=== PATIENT | male | born 1970 ===

== ENCOUNTER 2017-05-26 18:00 | Inpatient (IN) | payer MEDICAID, OTHER ==
[2017-05-26 18:00] VITALS: BMI 24.0
[2017-05-26 20:46] LABS: BASO # 0.1 K/uL (0.0-0.2); BASO % 0.7 % (0.0-2.0); EOS # 0.1 K/uL (0.0-0.7); EOS % 1.4 % (0.0-4.0); HEMATOCRIT 45.2 % (35.0-51.0); LYMPH # 1.5 K/uL (1.0-4.3); LYMPH % 20.7 % (20.0-40.0); MEAN CELL VOLUME 91.5 fl (80.0-94.0); MEAN CORPUSCULAR HGB CONC 32.7 g/dL (33.0-37.0); MEAN PLATELET VOLUME 9.4 fl (7.2-11.7); MONO # 1.2 K/uL (0.0-0.8); MONO % 16.9 % (0.0-10.0); NEUT # 4.3 K/uL (1.8-7.0); NEUT % 60.3 % (50.0-75.0); RED CELL DISTRIBUTION WIDTH 15.1 % (11.5-14.5); WHITE BLOOD COUNT 7.2 K/uL (4.8-10.8)
[2017-05-26 20:59] LABS: RBC URINE 273 /hpf (0-3); URINE BILIRUBIN NEGATIVE (NEGATIVE); URINE BLOOD LARGE (NEGATIVE); URINE COLOR YELLOW (YELLOW); URINE GLUCOSE (UA) NEG (Normal); URINE KETONE TRACE mg/dL (NEGATIVE); URINE LEUKOCYTE ESTERASE LARGE Leu/uL (Negative); URINE PROTEIN 30 mg/dL (NEGATIVE); URINE UROBILINOGEN 0.2-1.0 mg/dL (0.2-1.0); WBC URINE 130 /hpf (0-5)
[2017-05-26 21:00] LABS: ALCOHOL SERUM < 10 mg/dl (0-10); BLOOD UREA NITROGEN 15 mg/dl (9-20); CALCIUM 9.6 mg/dL (8.4-10.2); CARBON DIOXIDE 26 mmol/L (22-30); CHLORIDE 103 mmol/L (98-107); GFR AFRICAN-AMERICAN > 60; GLUCOSE,RANDOM 101 mg/dL (75-110); POTASSIUM 4.4 MMOL/L (3.6-5.0); URINE BACTERIA FEW (<OCC)
[2017-05-26 21:02] LABS: SODIUM 141 mmol/l (132-148)
--- NOTE | 2017-05-26 21:15 | ED PDOC ---
HPI: Psych/Substance Abuse Time Seen by Provider: 05/26/17 18:25 Chief Complaint (Nursing): Psychiatric Evaluation Chief Complaint (Provider): Psychiatric evaluation History Per: Patient, Family (mom) Onset/Duration Of Symptoms: Days (x1) Suicide/Self Injury Attempted (Context): Cut Wrists (small superficial abrasion in the right arm & little abrasion to left hand) Associated Symptoms: Depression, Suicidal Thoughts, Suicidal Plan Additional History Per: EMS Additional Complaint(s): Mohinder Comer is a 46 year old male, with a past medical history of bipolar disorder, who was brought to the emergency department by EMS accompanied by his mother for psychiatric evaluation onset prior to arrival. The mother reports that he was complaining of body aches and not feeling well. Also, he told her that he wanted to commit suicide. Patient has a small superficial abrasion on right arm and a little abrasion on the left hand after he was trying to cut himself. He states he is very depressed and wants to kill himself. No further medical complaints. PMD: None provided. Past Medical History Reviewed: Historical Data, Nursing Documentation, Vital Signs Vital Signs: Last Vital Signs Temp 98.1 F 05/26/17 18:10 Pulse 93 H 05/26/17 18:10 Resp 16 05/26/17 18:10 BP 145/99 H 05/26/17 18:10 Pulse Ox 96 05/26/17 18:10 - Medical History PMH: Anxiety, Bipolar Disorder, Depression, Migraine, Schizophrenia, Seizures ( LAST SEIZURE ) Denies: Diabetes, Hepatitis, HIV, HTN, Chronic Kidney Disease, Sexually Transmitted Disease - Surgical History Surgical History: No Surg Hx - Family History Family History: States: Unknown Family Hx - Immunization History Hx Tetanus Toxoid Vaccination: No Hx Influenza Vaccination: Yes Hx Pneumococcal Vaccination: No - Home Medications Home Medications: Ambulatory Orders Medication Instructions Recorded Atorvastatin [Lipitor] 20 mg PO DAILY 05/26/17 Divalproex Sodium [Divalproex 500 mg PO BID 05/26/17 Sodium] Mirtazapine [Mirtazapine] 15 mg PO HS 05/26/17 Multivitamin,Therapeutic [Therems] 1 tab PO DAILY 05/26/17 Olanzapine [Olanzapine Odt] 10 mg PO HS 05/26/17 Sertraline [Zoloft] 50 mg PO HS 05/26/17 clonazePAM [Klonopin] 1 mg PO HS 05/26/17 - Allergies Allergies/Adverse Reactions: Allergies Allergy/AdvReac Type Severity Reaction Status Date / Time soy Allergy Mild RASH Verified 11/10/16 09:42 hernesto Allergy RASH Uncoded 11/10/16 09:42 Review of Systems ROS Statement: Except As Marked, All Systems Reviewed And Found Negative Musculoskeletal: Positive for: Other (small superficial abrasion on right hand and little abrasion to the left arm) Psych: Positive for: Depression, Suicidal ideation Physical Exam - Reviewed Nursing Documentation Reviewed: Yes Vital Signs Reviewed: Yes - Physical Exam Appears: Positive for: Non-toxic Head Exam: Positive for: ATRAUMATIC, NORMAL INSPECTION, NORMOCEPHALIC Skin: Positive for: Normal Color, Warm, Dry ENT: Positive for: Other (pt has two superficial abrasions one on R arm and one on l hand) Neck: Positive for: Normal, Painless ROM, Supple Cardiovascular/Chest: Positive for: Regular Rate, Rhythm. Negative for: Murmur Respiratory: Positive for: Normal Breath Sounds. Negative for: Respiratory Distress Gastrointestinal/Abdominal: Positive for: Normal Exam, Bowel Sounds, Soft. Negative for: Tenderness, Guarding, Rebound Neurologic/Psych: Positive for: Alert, Oriented (x3) - Laboratory Results Result Diagrams: 05/26/17 20:30 05/26/17 20:45 - ECG ECG Rhythm: Positive for: Sinus Rhythm (Normal) Rate: 85 O2 Sat by Pulse Oximetry: 96 (RA) Pulse Ox Interpretation: Normal Medical Decision Making Medical Decision Making: Initial impression: psychiatric evaluation for suicidal ideation Initial Plan: --EKG --Alcohol serum --Basic Metabolic Panel --Drug screen, urine --Crisis evaluation --1:1 observation --reevaluation -patient has UTI, ordered macrobid. Patient medically cleared for psychiatric admission per Crisis. Accepted for bipolar disorder. Scribe Attestation: Documented by Mc Polanco, acting as a scribe for John Gavin MD Provider Scribe Attestation: All medical record entries made by the Scribe were at my direction and personally dictated by me. I have reviewed the chart and agree that the record accurately reflects my personal performance of the history, physical exam, medical decision making, and the department course for this patient. I have also personally directed, reviewed, and agree with the discharge instructions and disposition. Disposition - Clinical Impression Clinical Impression: Suicidal behavior with attempted self-injury - Patient ED Disposition Is Patient to be Admitted: Yes Counseled Patient/Family Regarding: Studies Performed, Diagnosis - Disposition Disposition Time: 20:00 Condition: STABLE
[2017-05-26] MEDS ORDERED: Magnesium Hydroxide Susp 30 ml UD PO PRN (23:33)
[2017-05-26] MEDS ORDERED: DiphenhydrAMINE 50 mg/ml Inj IM PRN (23:33)
[2017-05-26] MEDS ORDERED: Alum-Mag Hydrox-Simethicone Susp (30 mL) PO PRN (23:33)
[2017-05-26] MEDS ORDERED: Bismuth Subsalicylate 262 mg/15 ml Sus (240 ml) PO PRN (23:34)
--- NOTE | 2017-05-27 00:25 | PCM.BM ---
<Kristofer Rodriguez P - Last Filed: 05/27/17 00:23> Treatment Plan Problems - Problems identified on initial assessmt Hopelessness/helplessness Date Initiated: 05/27/17 Time Initiated: 00:23 Assessment reference: NA Status: Active Treatment assets and liabiliti Patient Assests: cooperative, ADL independent, physically healthy, negotiates basic needs, cognitively intact Patient Liabilities: financial problems, medical problems - Milieu Protocol Maintain good personal hygiene: daily Encourage regular showers, daily Remind patient to perform daily oral care Maintain personal safety: every shift Educate patient to report safety concerns to staff, every shift Monitor environment for contraband/sharps Medication safety: Monitor for expected outcome, potential side effects: every shift, Assess barriers to learning: every shift, Assess readiness for medication education: every shift <Bela Devries - Last Filed: 05/29/17 12:30> Treatment assets and liabiliti Patient Assests: adapts well, cooperative, ADL independent, physically healthy, negotiates basic needs, cognitively intact Patient Liabilities: financial problems, poor support system, medical problems Family Contact - Outside Agency Agency 1 Care involvment: Following patient during stay, Other Agency contact name: [facility] Agency contact number: [phone]
[2017-05-27 07:48] LABS: T4 5.55 ug/dl (5.5-11.0)
[2017-05-27 08:00] LABS: THYROID STIMULATING HORMONE 2.67 mIU/ML (0.46-4.68)
--- NOTE | 2017-05-27 08:07 | CARD ---
APPROVED REPORT EKG Measurement Heart [id number] <Conclusion> Normal sinus rhythm Normal ECG
[2017-05-27] MEDS ORDERED: MULTIVITAMIN THERAPEUTIC PO SCH (09:00)
[2017-05-27] MEDS: Multivitamin With Minerals Tab PO SCH (09:26)
[2017-05-27] MEDS ORDERED: Divalproex 500 mg ER (ONCE DAILY formulation) PO SCH (11:30)
--- NOTE | 2017-05-27 11:59 | CP.PCM.CON ---
<Opal Roman - Last Filed: 05/27/17 14:14> History of Present Illness - History of Present Illness History of Present Illness: 46 y/o male seen at bedside in psych unit after consultation for medical evaluation. Pt states he was admitted into the hospital by his mother in law due to suicidal thoughts and actions. Pt admits to trying to cut, punch and stab himself periodically in an effort to kill himself over the past 10-15 years. Pt admits to experiencing darkened urine last week that turned to bloody urine approx 3 days ago. Pt states when he came into the hospital yesterday it was yellow again but he was experiencing a burning sensation and increased frequency of urination. Pt admits he had fever and chills yesterday as well. Pt denies N/V/CP/SOB. Pt denies any lower abdominal pain. Pt denies diarrhea or constipation. Pt has no other complaints at this time. PMH: seizure disorder, depression, HLD PSH: L foot surgery, inguinal hernia repair x2 All: soy Social: admits to 3 cigs/day. Admits to cocaine abuse over 20 years ago. Denies EtOH use Family: lives with mother in law (his caregiver) Review of Systems - Review of Systems All systems: reviewed and no additional remarkable complaints except (per HPI) Past Patient History - Infectious Disease Hx of Infectious Diseases: None - Tetanus Immunizations Tetanus Immunization: Unknown - Past Medical History & Family History Past Medical History?: Yes - Past Social History Smoking Status: Light Smoker < 10 Cigarettes Daily - CARDIAC Hx Hypertension: No - PULMONARY Hx Respiratory Disorders: No Hx Tuberculosis: No - NEUROLOGICAL Hx Migraine: Yes Hx Seizures: Yes (LAST SEIZURE ) - HEENT Hx HEENT Problems: Yes ("Hard of Hearing, left ear") Other/Comment: wears bilateral bifocals - RENAL Hx Chronic Kidney Disease: No - ENDOCRINE/METABOLIC Hx Endocrine Disorders: No - HEMATOLOGICAL/ONCOLOGICAL Hx Human Immunodeficiency Virus (HIV): No - INTEGUMENTARY Hx Dermatological Problems: No - MUSCULOSKELETAL/RHEUMATOLOGICAL Hx Musculoskeletal Disorders: Yes Other/Comment: HX: BUNIONS - GASTROINTESTINAL Hx Gastrointestinal Disorders: Yes Other/Comment: Hx. Umbilical Hernia - GENITOURINARY/GYNECOLOGICAL Hx Sexually Transmitted Disorders: No - PSYCHIATRIC Hx Anxiety: Yes Hx Bipolar Disorder: Yes Hx Depression: Yes Hx Schizophrenia: Yes - SURGICAL HISTORY Hx Surgeries: Yes Hx Herniorrhaphy: Yes (REPAIR OF-HX: RIGHT INGUINAL; HX: UMBILICAL HERNIA) Other/Comment: left foot surgery - ANESTHESIA Hx Anesthesia: Yes Hx Anesthesia Reactions: No Hx Malignant Hyperthermia: No Meds Allergies/Adverse Reactions: Allergies Allergy/AdvReac Type Severity Reaction Status Date / Time soy Allergy Mild RASH Verified 11/10/16 09:42 hernesto Allergy RASH Uncoded 11/10/16 09:42 - Medications Medications: Current Medications Acetaminophen (Tylenol 325mg Tab) 650 mg PO Q4 PRN PRN Reason: pain level 4-7 Al Hydrox/Mg Hydrox/Simethicone (Maalox Plus 30 Ml) 30 ml PO Q4 PRN PRN Reason: Dyspepsia Atorvastatin Calcium (Lipitor) 20 mg PO DAILY [facility] Last Admin: 05/27/17 09:26 Dose: 20 mg Bismuth Subsalicylate (Pepto-Bismol) 524 mg PO Q4 PRN PRN Reason: Diarrhea Clonazepam (Klonopin) 0.5 mg PO BID [facility] Diphenhydramine HCl (Benadryl) 50 mg IM Q6 PRN PRN Reason: Extrapyramidal S/S Unable PO Diphenhydramine HCl (Benadryl) 50 mg PO Q6 PRN PRN Reason: Extrapyramidal Symptoms Diphenhydramine HCl (Benadryl) 50 mg PO HS PRN PRN Reason: Sleep Last Admin: 05/27/17 00:14 Dose: 50 mg Divalproex Sodium (Depakote Dr(*Bid*)) 500 mg PO BID [facility] Haloperidol (Haldol) 5 mg PO Q4 PRN PRN Reason: Agitation Haloperidol Lactate (Haldol) 5 mg IM Q4 PRN PRN Reason: Agitation, Unable to Take PO Lorazepam (Ativan) 2 mg IM Q4 PRN PRN Reason: Anxiety/Agitation,Unable PO Lorazepam (Ativan) 2 mg PO Q4 PRN PRN Reason: Anxiety/Agitation Magnesium Hydroxide (Milk Of Magnesia) 30 ml PO HS PRN PRN Reason: Constipation Mirtazapine (Remeron) 15 mg PO HS [facility] Multivitamins/Minerals (Therapeutic-M Tab) 1 tab PO DAILY [facility] Last Admin: 05/27/17 09:26 Dose: 1 tab Physical Exam - Constitutional Appears: Well, Non-toxic, No Acute Distress - Head Exam Head Exam: ATRAUMATIC, NORMOCEPHALIC - Eye Exam Eye Exam: EOMI, Normal appearance, PERRL Pupil Exam: NORMAL ACCOMODATION, PERRL - ENT Exam ENT Exam: Mucous Membranes Moist, Normal Exam - Neck Exam Neck exam: Positive for: Full Rom, Normal Inspection Additional comments: supple, non-tender, no JVD noted - Respiratory Exam Respiratory Exam: Clear to Auscultation Bilateral, NORMAL BREATHING PATTERN Additional comments: no respiratory distress, no wheezing, no rales - Cardiovascular Exam Cardiovascular Exam: REGULAR RHYTHM, +S1, +S2 Additional comments: no murmur, no gallop - GI/Abdominal Exam GI & Abdominal Exam: Normal Bowel Sounds, Soft Additional comments: non-tender - Rectal Exam Rectal Exam: Deferred - Extremities Exam Extremities exam: Positive for: full ROM, normal capillary refill Additional comments: superficial skin abrasions noted to inner aspect of B/L wrists. Old scarring noted to anterior L shoulder and dorsum of R hand at sites of prior suicide attempts - Back Exam Back exam: NORMAL INSPECTION - Neurological Exam Neurological exam: Alert, CN II-XII Intact, Normal Gait, Oriented x3, Reflexes Normal - Psychiatric Exam Psychiatric exam: Suicidal Ideation - Skin Skin Exam: Abrasion Additional comments: Superficial linear transverse abrasions noted to B/L inner wrists. No erythema, no drainage, no malodor, no clinical suspicion of infection. Old scars noted to anterior L shoulder and dorsum of R hand with no breaks in skin or soft tissue noted. No cellulitic changes noted. Results - Vital Signs Recent Vital Signs: Last Vital Signs Temp 97.3 F L 05/27/17 09:00 Pulse 88 05/27/17 09:00 Resp 18 05/27/17 09:00 BP 133/90 05/27/17 09:00 Pulse Ox 96 05/27/17 05:48 - Labs Result Diagrams: 05/26/17 20:30 05/26/17 20:45 Labs: Laboratory Results - last 24 hr 05/26/17 05/26/17 05/26/17 20:30 20:45 20:45 WBC 7.2 RBC 4.93 Hgb 14.8 Hct 45.2 MCV 91.5 MCH 30.0 MCHC 32.7 L RDW 15.1 H Plt Count 217 MPV 9.4 Neut % (Auto) 60.3 Lymph % (Auto) 20.7 Ballard % (Auto) 16.9 H Eos % (Auto) 1.4 Baso % (Auto) 0.7 Neut # 4.3 Lymph # 1.5 Ballard # 1.2 H Eos # 0.1 Baso # 0.1 Sodium 141 Potassium 4.4 Chloride 103 Carbon Dioxide 26 Anion Gap 16 BUN 15 Creatinine 1.1 Est GFR ( Amer) > 60 Est GFR (Non-Af Amer) > 60 Random Glucose 101 Calcium 9.6 Triglycerides Cholesterol LDL Cholesterol Direct HDL Cholesterol Thyroxine (T4) TSH 3rd Generation Urine Color Urine Clarity Urine pH Ur Specific Lilly Urine Protein Urine Glucose (UA) Urine Ketones Urine Blood Urine Nitrate Urine Bilirubin Urine Urobilinogen Ur Leukocyte Esterase Urine RBC (Auto) Urine Microscopic WBC Urine Bacteria Salicylates < 1.0 Urine Opiates Screen Urine Methadone Screen Acetaminophen < 10.0 L Ur Barbiturates Screen Ur Phencyclidine Scrn Ur Amphetamines Screen U Benzodiazepines Scrn U Oth Cocaine Metabols U Cannabinoids Screen Alcohol, Quantitative < 10 05/26/17 05/26/17 05/27/17 20:45 20:45 06:30 WBC RBC Hgb Hct MCV MCH MCHC RDW Plt Count MPV Neut % (Auto) Lymph % (Auto) Ballard % (Auto) Eos % (Auto) Baso % (Auto) Neut # Lymph # Ballard # Eos # Baso # Sodium Potassium Chloride Carbon Dioxide Anion Gap BUN Creatinine Est GFR ( Amer) Est GFR (Non-Af Amer) Random Glucose Calcium Triglycerides 156 H D Cholesterol 215 H LDL Cholesterol Direct 143 H HDL Cholesterol 37 Thyroxine (T4) 5.55 TSH 3rd Generation 2.67 Urine Color Yellow Urine Clarity Cloudy Urine pH 6.0 Ur Specific Lilly 1.019 Urine Protein 30 Urine Glucose (UA) Neg Urine Ketones Trace Urine Blood Large Urine Nitrate Positive H Urine Bilirubin Negative Urine Urobilinogen 0.2-1.0 Ur Leukocyte Esterase Large Urine RBC (Auto) 273 H Urine Microscopic WBC 130 H Urine Bacteria Few H Salicylates Urine Opiates Screen Positive H Urine Methadone Screen Negative Acetaminophen Ur Barbiturates Screen Positive H Ur Phencyclidine Scrn Negative Ur Amphetamines Screen Negative U Benzodiazepines Scrn Negative U Oth Cocaine Metabols Negative U Cannabinoids Screen Negative Alcohol, Quantitative Assessment & Plan (1) Depression Assessment and Plan: Psych to continue with medication management of bipolar disorder and depression with suicidal ideations Status: Acute (2) Urinary tract infection Assessment and Plan: -Macrobid for 2 add'l days for UTI Status: Acute (3) Hyperlipidemia Assessment and Plan: -on Atorvastatin (home med) Status: Chronic (4) Seizure disorder Assessment and Plan: -last seizure >1 mo ago -continue Depakote Status: Chronic (5) Pre-diabetes Assessment and Plan: -HgA1C = 6.2 -Diabetic education and counseling on diet and exercise Status: Acute <Ana Solitario - Last Filed: 05/27/17 19:25> Meds - Medications Medications: Current Medications Acetaminophen (Tylenol 325mg Tab) 650 mg PO Q4 PRN PRN Reason: pain level 4-7 Last Admin: 05/27/17 17:25 Dose: 650 mg Al Hydrox/Mg Hydrox/Simethicone (Maalox Plus 30 Ml) 30 ml PO Q4 PRN PRN Reason: Dyspepsia Atorvastatin Calcium (Lipitor) 20 mg PO DAILY [facility] Last Admin: 05/27/17 09:26 Dose: 20 mg Bismuth Subsalicylate (Pepto-Bismol) 524 mg PO Q4 PRN PRN Reason: Diarrhea Clonazepam (Klonopin) 0.5 mg PO BID [facility] Last Admin: 05/27/17 17:27 Dose: 0.5 mg Diphenhydramine HCl (Benadryl) 50 mg IM Q6 PRN PRN Reason: Extrapyramidal S/S Unable PO Diphenhydramine HCl (Benadryl) 50 mg PO Q6 PRN PRN Reason: Extrapyramidal Symptoms Diphenhydramine HCl (Benadryl) 50 mg PO HS PRN PRN Reason: Sleep Last Admin: 05/27/17 00:14 Dose: 50 mg Divalproex Sodium (Depakote Dr(*Bid*)) 500 mg PO BID [facility] Last Admin: 05/27/17 17:27 Dose: 500 mg Haloperidol (Haldol) 5 mg PO Q4 PRN PRN Reason: Agitation Haloperidol Lactate (Haldol) 5 mg IM Q4 PRN PRN Reason: Agitation, Unable to Take PO Lorazepam (Ativan) 2 mg IM Q4 PRN PRN Reason: Anxiety/Agitation,Unable PO Lorazepam (Ativan) 2 mg PO Q4 PRN PRN Reason: Anxiety/Agitation Magnesium Hydroxide (Milk Of Magnesia) 30 ml PO HS PRN PRN Reason: Constipation Mirtazapine (Remeron) 15 mg PO HS MALIHA Multivitamins/Minerals (Therapeutic-M Tab) 1 tab PO DAILY [facility] Last Admin: 05/27/17 09:26 Dose: 1 tab Nitrofurantoin Macrocrystals (Macrobid) 100 mg PO Q12 [facility] Stop: 05/29/17 09:01 Results - Vital Signs Recent Vital Signs: Last Vital Signs Temp 98.1 F 05/27/17 17:00 Pulse 88 05/27/17 17:00 Resp 18 05/27/17 17:00 BP 141/91 H 05/27/17 17:00 Pulse Ox 96 05/27/17 05:48 - Labs Result Diagrams: 05/26/17 20:30 05/26/17 20:45 Labs: Laboratory Results - last 24 hr 05/26/17 05/26/17 05/26/17 20:30 20:45 20:45 WBC 7.2 RBC 4.93 Hgb 14.8 Hct 45.2 MCV 91.5 MCH 30.0 MCHC 32.7 L RDW 15.1 H Plt Count 217 MPV 9.4 Neut % (Auto) 60.3 Lymph % (Auto) 20.7 Ballard % (Auto) 16.9 H Eos % (Auto) 1.4 Baso % (Auto) 0.7 Neut # 4.3 Lymph # 1.5 Ballard # 1.2 H Eos # 0.1 Baso # 0.1 Sodium 141 Potassium 4.4 Chloride 103 Carbon Dioxide 26 Anion Gap 16 BUN 15 Creatinine 1.1 Est GFR ( Amer) > 60 Est GFR (Non-Af Amer) > 60 Random Glucose 101 Hemoglobin A1c Calcium 9.6 Triglycerides Cholesterol LDL Cholesterol Direct HDL Cholesterol Thyroxine (T4) TSH 3rd Generation Urine Color Urine Clarity Urine pH Ur Specific Lilly Urine Protein Urine Glucose (UA) Urine Ketones Urine Blood Urine Nitrate Urine Bilirubin Urine Urobilinogen Ur Leukocyte Esterase Urine RBC (Auto) Urine Microscopic WBC Urine Bacteria Salicylates < 1.0 Urine Opiates Screen Urine Methadone Screen Acetaminophen < 10.0 L Ur Barbiturates Screen Ur Phencyclidine Scrn Ur Amphetamines Screen U Benzodiazepines Scrn U Oth Cocaine Metabols U Cannabinoids Screen Alcohol, Quantitative < 10 RPR 05/26/17 05/26/17 05/27/17 20:45 20:45 06:30 WBC RBC Hgb Hct MCV MCH MCHC RDW Plt Count MPV Neut % (Auto) Lymph % (Auto) Ballard % (Auto) Eos % (Auto) Baso % (Auto) Neut # Lymph # Ballard # Eos # Baso # Sodium Potassium Chloride Carbon Dioxide Anion Gap BUN Creatinine Est GFR ( Amer) Est GFR (Non-Af Amer) Random Glucose Hemoglobin A1c Calcium Triglycerides 156 H D Cholesterol 215 H LDL Cholesterol Direct 143 H HDL Cholesterol 37 Thyroxine (T4) 5.55 TSH 3rd Generation 2.67 Urine Color Yellow Urine Clarity Cloudy Urine pH 6.0 Ur Specific Lilly 1.019 Urine Protein 30 Urine Glucose (UA) Neg Urine Ketones Trace Urine Blood Large Urine Nitrate Positive H Urine Bilirubin Negative Urine Urobilinogen 0.2-1.0 Ur Leukocyte Esterase Large Urine RBC (Auto) 273 H Urine Microscopic WBC 130 H Urine Bacteria Few H Salicylates Urine Opiates Screen Positive H Urine Methadone Screen Negative Acetaminophen Ur Barbiturates Screen Positive H Ur Phencyclidine Scrn Negative Ur Amphetamines Screen Negative U Benzodiazepines Scrn Negative U Oth Cocaine Metabols Negative U Cannabinoids Screen Negative Alcohol, Quantitative RPR 05/27/17 05/27/17 06:30 06:30 WBC RBC Hgb Hct MCV MCH MCHC RDW Plt Count MPV Neut % (Auto) Lymph % (Auto) Ballard % (Auto) Eos % (Auto) Baso % (Auto) Neut # Lymph # Ballard # Eos # Baso # Sodium Potassium Chloride Carbon Dioxide Anion Gap BUN Creatinine Est GFR ( Amer) Est GFR (Non-Af Amer) Random Glucose Hemoglobin A1c 6.2 Calcium Triglycerides Cholesterol LDL Cholesterol Direct HDL Cholesterol Thyroxine (T4) TSH 3rd Generation Urine Color Urine Clarity Urine pH Ur Specific Lilly Urine Protein Urine Glucose (UA) Urine Ketones Urine Blood Urine Nitrate Urine Bilirubin Urine Urobilinogen Ur Leukocyte Esterase Urine RBC (Auto) Urine Microscopic WBC Urine Bacteria Salicylates Urine Opiates Screen Urine Methadone Screen Acetaminophen Ur Barbiturates Screen Ur Phencyclidine Scrn Ur Amphetamines Screen U Benzodiazepines Scrn U Oth Cocaine Metabols U Cannabinoids Screen Alcohol, Quantitative RPR Nonreactive Attending/Attestation - Attestation I have personally seen and examined this patient.: Yes I have fully participated in the care of the patient.: Yes I have reviewed all pertinent clinical information: Yes Notes (Text): 05/27/17 19:25 SEEN EXAMINED DISCUSSED WITH RESIDENT, AGREE WITH FINDINGS AND PLAN ABOVE.
[2017-05-27] MEDS: Divalproex 500 mg DR(BID formulation) PO SCH ×2 (12:24→17:27)
--- NOTE | 2017-05-27 13:45 | RAD ---
HISTORY: Routine. COMPARISON: No prior. TECHNIQUE: Chest PA and lateral FINDINGS: LUNGS: No active pulmonary disease. PLEURA: No significant pleural effusion identified. No pneumothorax apparent. CARDIOVASCULAR: Normal. OSSEOUS STRUCTURES: No significant abnormalities. VISUALIZED UPPER ABDOMEN: Normal. OTHER FINDINGS: None. IMPRESSION: No active disease.
--- NOTE | 2017-05-27 14:36 | PCM.PSYCH ---
Initial Psychiatric Evaluation - Initial Psychiatric Evaluation Type of Admission: Voluntary Chief Complaint (in patient's own words): I HAD BAD PAIN AND I SAW BLOOD IN MY URINE SO I STARTED THINKING ABOUT HURTING MYSELF Patient's Reaction to Hospitalization: PATIENT REQUESTING HELP History of Present Illness and Precipitating Events: Pt is a 46 y/o male that presented to the ED for suicidal ideations with no plan. Pt reports that he asked his mom to call 911 because he was going to harm himself. Pt reports that his ideations was triggered due to physical pain due to a headche and urinary tract infection. Pt e has a history of self mutilative behavior Pt has history of Bipolar disorder and seizure disorder . Pt reported several inpatient treatment in various hospitals with his last inpatient treatment being in 09/2016 at [facility]. he currently attends his day day program at [facility]. Pt reports his medications as Liptor 20mg, Klonopin 1mg, Depakote 300mg, Zoloft 50mg anf Mirtazpine 15mg. Pt denied any current psychotic symptoms, denied any current substance use Current Medications: Active Medications Generic Name Dose Route Start Last Admin Trade Name Freq PRN Reason Stop Dose Admin Acetaminophen 650 mg 05/26/17 23:33 Tylenol 325mg Tab PO Q4 PRN pain level 4-7 Al Hydrox/Mg Hydrox/Simethicone 30 ml 05/26/17 23:33 Maalox Plus 30 Ml PO Q4 PRN Dyspepsia Atorvastatin Calcium 20 mg 05/27/17 09:00 05/27/17 09:26 Lipitor PO 20 mg DAILY MALIHA Administration Bismuth Subsalicylate 524 mg 05/26/17 23:34 Pepto-Bismol PO Q4 PRN Diarrhea Clonazepam 0.5 mg 05/27/17 12:00 05/27/17 12:24 Klonopin PO 0.5 mg BID MALIHA Administration Diphenhydramine HCl 50 mg 05/26/17 23:33 Benadryl IM Q6 PRN Extrapyramidal S/S Unable PO Diphenhydramine HCl 50 mg 05/26/17 23:33 Benadryl PO Q6 PRN Extrapyramidal Symptoms Diphenhydramine HCl 50 mg 05/27/17 00:10 05/27/17 00:14 Benadryl PO 50 mg HS PRN Administration Sleep Divalproex Sodium 500 mg 05/27/17 12:00 05/27/17 12:24 Ilya Kowalski(*Bid*) PO 500 mg BID MALIHA Administration Haloperidol 5 mg 05/26/17 23:33 Haldol PO Q4 PRN Agitation Haloperidol Lactate 5 mg 05/26/17 23:33 Haldol IM Q4 PRN Agitation, Unable to Take PO Lorazepam 2 mg 05/26/17 23:33 Ativan IM Q4 PRN Anxiety/Agitation,Unable PO Lorazepam 2 mg 05/26/17 23:33 Ativan PO Q4 PRN Anxiety/Agitation Magnesium Hydroxide 30 ml 05/26/17 23:33 Milk Of Magnesia PO HS PRN Constipation Mirtazapine 15 mg 05/27/17 22:00 Remeron PO HS MALIHA Multivitamins/Minerals 1 tab 05/27/17 09:00 05/27/17 09:26 Therapeutic-M Tab PO 1 tab DAILY MALIHA Administration Nitrofurantoin Macrocrystals 100 mg 05/27/17 21:00 Macrobid PO 05/29/17 09:01 Q12 MALIHA Past Psychiatric History - Past Psychiatric History Previous Treatment History: Inpatient Explanation of prior treatment: patient has history of at least two inpatient hospitalizations, diagnosed with bipolar disorder, currently follows up at a day program History of Abuse: patient denied History of ETOH/Drug Use: occasional use of alcohol denied any other substance use Pertinent Medical Hx (Current Medical&Sleep Prob, Allergies): Allergies Allergy/AdvReac Type Severity Reaction Status Date / Time soy Allergy Mild RASH Verified 11/10/16 09:42 hernesto Allergy RASH Uncoded 11/10/16 09:42 Atorvastatin [Lipitor] 20 mg PO DAILY 05/26/17 Divalproex Sodium [Divalproex Sodium] 500 mg PO BID 05/26/17 Mirtazapine [Mirtazapine] 15 mg PO HS 05/26/17 Multivitamin,Therapeutic [Therems] 1 tab PO DAILY 05/26/17 Olanzapine [Olanzapine Odt] 10 mg PO HS 05/26/17 Sertraline [Zoloft] 50 mg PO HS 05/26/17 clonazePAM [Klonopin] 1 mg PO HS 05/26/17 Mental Status Examination - Personal Presentation Personal Presentation: Looks stated age - Motor Activity Motor Activity: Psychomotor Agitation - Reliability in Providing Information Reliability in Providing Information: Fair - Speech Speech: Tangential - Mood Mood: Anxious - Formal Thought Process Formal Thought Process: Circumstantial - Hallucinations/Delusions Additional comments: patient denied any current perceptual disturbances non elicited - Obsessions/Compulsions Obsessions: No Compulsions: No - Cognitive Functions Orientation: Person, Place, Situation Sensorium: Alert Attention/Concentration: Attentive Abstract Thinking: [place] Judgement: Imparied, as evidence by: Poor judgement Memory: Recent intact, as evidence by: Ability to recall events of the day - Risk Risk: Self-mutilation, Diminished functioning - Strength & Assets Inventory Strength & Assets Inventory: Employment history - Limitations Additional comments: financial difficultieds and poor social support DSM 5 DX - DSM 5 DSM 5 Diagnosis: bipolar I disorder MRE DEPRESSED - Recommended/Plan of Treatment Treatment Recommendations and Plan of Treatment: START DEPAKOTE REMERON AND KLONOPIN PATIENT WILL BE MONITORED FOOR PSYCHOPHARMACOLOGICAL EFFECTS AND SIDE EFFECT PROFILE SUPPORTIVE THERAPY PROVIDED Discharge Plan and Discharge Criteria: PATIENT PRESENTING WITH STABLE MOOD
[2017-05-28] MEDS: Divalproex 500 mg DR(BID formulation) PO SCH ×2 (09:19→17:31)
[2017-05-28] MEDS: Multivitamin With Minerals Tab PO SCH (09:20)
--- NOTE | 2017-05-28 10:41 | PCM.PYCHPN ---
Psychiatric Progress Note - Psychiatric Progress Note Patient seen today, length of contact: Patient evaluated, case discussed w/ team , chart reviewed Patient Chief Complaint: "I'm feeling okay" Problems Identified/Issues Discussed: Patient reports that his mood is starting to improve, but he continues to feel depressed and anxious at times. He denies current ideation to harm self or others. He denies psychotic symptoms. He denies adverse effects to medications. Medication Change: No Medical Record Reviewed: Yes Consults ordered or reviewed: Medicine consult- patient on Macrobid for UTI Mental Status Examination - Cognitive Function Orientation: Person, Place, Situation, Time Memory: Intact Attention: WNL Concentration: WNL Association: WNL Fund of Knowledge: [facility] Decription of patient's judgement and insights: Poor I/J re: substance abuse - Mood Mood: Depressed, Anxious - Affect Affect: Constricted - Speech Speech: Appropriate - Formal Thought Process Formal Thought Process: No Impairment Psychotic Thoughts and Behaviors: NO AH/VH/paranoia/delusions - Suicidal Ideation Suicidal Ideation: No - Homicidal Ideation Homicidal Ideation: No Goal/Treatment Plan - Goal/Treatment Plan Need for Continued Stay: Remain at risks for inpatient hospitalization, Severe depression anxiety, Discharge may exacerbated symptoms Progress Toward Problem(s) and Goals/Treatment Plan: Bipolar Disorder; Opioid Use Disorder; Barbituate Use Disorder -Individual and group therapy -Medicine consult appreciated, patient on Macrobid for UTI -Continue Remeron 15 mg PO HS -Continue Depakote 500 mg PO BID -Continue Klonopin 0.5 mg PO BID -Disposition planning Estimated Date of D/C: 05/31/17
--- NOTE | 2017-05-29 08:36 | PCM.PYCHPN ---
Psychiatric Progress Note - Psychiatric Progress Note Patient seen today, length of contact: Patient evaluated, case discussed w/ team , chart reviewed Patient Chief Complaint: "I'm feeling okay" Problems Identified/Issues Discussed: Patient reports that his mood is improving, he feels less anxious and depressed. No acute medical complaints. He denies current ideation to harm self or others. He denies psychotic symptoms. He denies adverse effects to medications. Medication Change: No Medical Record Reviewed: Yes Consults ordered or reviewed: Medicine consult- patient on Macrobid for UTI Mental Status Examination - Cognitive Function Orientation: Person, Place, Situation, Time Memory: Intact Attention: WNL Concentration: WNL Association: WNL Fund of Knowledge: WN Decription of patient's judgement and insights: Poor I/J re: substance abuse - Mood Mood: Depressed - Affect Affect: Constricted - Speech Speech: Appropriate - Formal Thought Process Formal Thought Process: No Impairment Psychotic Thoughts and Behaviors: NO AH/VH/paranoia/delusions - Suicidal Ideation Suicidal Ideation: No - Homicidal Ideation Homicidal Ideation: No Goal/Treatment Plan - Goal/Treatment Plan Need for Continued Stay: Remain at risks for inpatient hospitalization, Severe depression anxiety, Discharge may exacerbated symptoms Progress Toward Problem(s) and Goals/Treatment Plan: Bipolar Disorder; Opioid Use Disorder; Barbituate Use Disorder -Individual and group therapy -Medicine consult appreciated, patient on Macrobid for UTI -Continue Remeron 15 mg PO HS -Continue Depakote 500 mg PO BID, check VPA 05/31/17 -Continue Klonopin 0.5 mg PO BID -Disposition planning Estimated Date of D/C: 05/31/17
[2017-05-29] MEDS: Multivitamin With Minerals Tab PO SCH (09:22)
[2017-05-29] MEDS: Divalproex 500 mg DR(BID formulation) PO SCH ×2 (09:22→17:28)
[2017-05-30] MEDS: Multivitamin With Minerals Tab PO SCH (08:46)
[2017-05-30 09:23] VITALS: PULSE 85; O2SAT 96
[2017-05-30 09:48] VITALS: BP 120/87; RESP 16; TEMP 96.6
[2017-05-30] MEDS: Divalproex 500 mg DR(BID formulation) PO SCH (09:52)
--- NOTE | 2017-05-30 10:57 | PCM.PYCHDC ---
Mental Status Examination - Mental Status Examination Orientation: Person, Place, Situation, Time Memory: Intact Mood: Neutral Affect: Broad Speech: Appropriate Attention: WNL Concentration: WNL Association: WNL Fund of Knowledge: WNL Formal Thought Process: No Impairment Description of patient's judgement and insight: Poor I/J re: substance abuse; Psychoeducation provided Psychotic Thoughts and Behaviors: NO AH/VH/paranoia/delusions Suicidal Ideation: No Current Homicidal Ideation?: No Discharge Summary - Discharge Note Reason for Hospitalization: 46 y/o male admitted for suicidal ideation and depressed mood in the context of opioid and barbituate abuse. +sleep/appetite disturbances. Pt admits to experiencing darkened urine last week that turned to bloody urine approx 3 days ago. Pt states when he came into the hospital yesterday it was yellow again but he was experiencing a burning sensation and increased frequency of urination. Pt admits he had fever and chills yesterday as well. Pt denies N/V/CP/SOB. Pt denies any lower abdominal pain. Pt denies diarrhea or constipation. Pt has no other complaints at this time. PMH: seizure disorder, depression, HLD PSH: L foot surgery, inguinal hernia repair x2 All: soy Social: admits to 3 cigs/day. Admits to cocaine abuse over 20 years ago. Denies EtOH use Family: lives with mother in law (his caregiver) Laboratory Data: Abnormal Lab Results 05/30/17 09:15 Valproic Acid 54.9 Consultations:: List each consultation separately and include: 1. Reason for request. 2. Findings. 3. Follow-up Consultations: Medicine consult- patient treated for UTI Summary of Hospital Course include:: 1. Description of specific treatment plan utilized for patients during their course of treatmen. 2. Summarize the time- course for resolution of acute symptoms and/or regressed behaviors. 3. Describe issues identified and worked on during hospitalization. 4. Describe medication utilized. 5. Describe medical problems identified and treated. 6. Reassessment of suicide risk Summary of Hospital Course: Patient admitted to the psychiatry unit. Individual and group therapy were provided. Patient was stabilized on Depakote 500 mg PO BID (VPA 54.9 on ), Remeron 15 mg PO HS, Klonopin 0.5 mg PO BID. Patient submitted a 48 hour letter requesting discharge and as he is not an acute danger to self or others will be discharged at this time. Psychoeducation provided re: substance abuse and how it can affect mental health. Patient counseled on the importance of compliance with treatment and medications. - Final Diagnosis (DSM 5) Condition upon Discharge: STABLE DSM 5: Bipolar Disorder; Opioid Use Disorder; Barbituate Use Disorder Disposition: HOME/ ROUTINE Follow-up Treatment Plan: Bipolar Disorder; Opioid Use Disorder; Barbituate Use Disorder; patient submitted a 48 hour letter requesting discharge and will be discharged at this time as he is not an acute danger to self or others. -Medicine consult appreciated, patient completed tx for UTI -Continue Remeron 15 mg PO HS -Continue Depakote 500 mg PO BID, VPA 54.9 on 05/30/17 -Continue Klonopin 0.5 mg PO BID -Discharge w/ outpatient follow-up Prescriptions/Medication Reconciliation: Atorvastatin [Lipitor] 20 mg PO DAILY #30 tab clonazePAM [Klonopin] 0.5 mg PO BID PRN #14 tab PRN Reason: Anxiety Divalproex [Depakote DR(*BID*)] 500 mg PO BID #60 tcp Mirtazapine [Remeron] 15 mg PO HS #30 tab - Smoking Cessation Smoking Cessation Medication prescribed: No Reason for not providing: Patient declined - Antipsychotic Medications Pt discharged on 2 or more routine antipsychotic medications: No
== END 2017-05-30 11:35 | disposition home or self-care (01) | DRG 430 ==
LOC: H.ER 18:00 → H.ERHOLD 21:42 → H.PSYCH 23:23
PROVIDERS: ADMIT Psychiatry & Neurology Psychiatry; ATTEND Psychiatry & Neurology Psychiatry
PROC: GZHZZZZ Group Psychotherapy (ICD-10-PCS; principal; 2017-05-27)
PROC: GZ51ZZZ Individual Psychotherapy, Behavioral (ICD-10-PCS; 2017-05-27)
DX: F31.9 Bipolar disorder, unspecified (principal); G40.909 Epilepsy, unspecified, not intractable, without status epilepticus; R45.851 Suicidal ideations; N39.0 Urinary tract infection, site not specified; F11.90 Opioid use, unspecified, uncomplicated; E78.5 Hyperlipidemia, unspecified; F17.210 Nicotine dependence, cigarettes, uncomplicated; F20.9 Schizophrenia, unspecified; H91.92 Unspecified hearing loss, left ear; R73.03 Prediabetes; S40.811A Abrasion of right upper arm, initial encounter; S60.512A Abrasion of left hand, initial encounter; Z79.899 Other long term (current) drug therapy; F41.9 Anxiety disorder, unspecified; G43.909 Migraine, unspecified, not intractable, without status migrainosus; M21.619 Bunion of unspecified foot; R35.0 Frequency of micturition; R31.9 Hematuria, unspecified; F19.90 Other psychoactive substance use, unspecified, uncomplicated